=== PATIENT | female | born 1970 | race Hispanic/Latino ===

== ENCOUNTER 2020-09-14 08:12 | Day surgery (SDC) | payer BC ==
[~2020-09-14] VITALS: Ht 152.4 cm; Wt 52.0 kg
[~2020-09-14 08:12] MED LIST: COZAAR50 MG PO; KRILL OIL 1,001 EAC1 PO; MAGNESIUM250 M1 PO; MOTRIN IB200 MG PO; PERCOCET 7.5-31 EACH PO; TYLENOL325 MG PO; VITAMIN C1000 MG PO
[2020-09-14] MEDS ORDERED: NORVASC5 MG PO (08:41)
--- NOTE | 2020-09-14 10:29 | NUR ---
09/14/20 1029 Daxa Partida 1027 PATIENT RESTING QUIETLY WITH EYES CLOSED. RESP EVEN AND UNLABORED, NC OFF, ROOM AIR SATS 100%. PATIENT PASSING GAS.
--- NOTE | 2020-09-15 14:34 | OR ---
[facility] [address] [place], [place] [address] Signed DATE OF OPERATION: 09/14/2020 SURGEON: Zac Allen MD PREOPERATIVE DIAGNOSES: 1. Longstanding gastroesophageal reflux, possible Morales's esophagus from past. 2. Diarrhea alternating with constipation. POSTOPERATIVE DIAGNOSES: 1. Hiatal hernia with mild distal esophagitis. 2. Normal-appearing colon. PROCEDURES: 1. Esophagogastroduodenoscopy with biopsy. 2. Total colonoscopy to cecum. ANESTHESIA: Intravenous sedation, fentanyl 150 mcg, Versed 8 mg total. 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 She is to Dimitry Riley, nuclear medicine tech. She has had longstanding reflux problems and is referred by Dr. Baugh for consideration of upper endoscopy on that basis. She has taken PPI medication in the past and she has a history of H pylori, which was treated about 10 years ago. She does not have dysphagia, but does have pain when she eats and sometimes fecal urgency after eating. In addition, she has diarrhea alternating with constipation. She is admitted at this time to undergo upper endoscopy and colonoscopy. She understands the risks of bleeding, infection, and perforation. Special note, she has undergone cholecystectomy by me in 2019 for acalculous cholecystitis. FINDINGS: Upper endoscopy showed a hiatal hernia and mild distal esophagitis without Morales's epithelium. The stomach and duodenum were essentially normal. CLOtest was negative 30 minutes post procedure. On colonoscopy, the prep was excellent. Complete colonoscopy was undertaken to the cecum without question. There was no evidence of inflammation, diverticular formation, Electronically Signed By: ZAC ALLEN MD 09/15/20 1434 PATIENT NAME: ELADIA RILEY OPERATIVE REPORT DATE OF : 70 REPORT #: [id number] PHYSICIAN: ZAC ALLEN MD PCP: SANDEEP BAUGH MD REPORT IS CONFIDENTIAL AND NOT TO BE RELEASED WITHOUT AUTHORIZATION [facility] [address] [place], [place] [address] Signed polyps or cancer. DESCRIPTION OF PROCEDURE: The patient was brought to the endoscopy suite, given topical lidocaine anesthesia and placed in lateral decubitus position. Given intravenous sedation to the point of slurred speech and nystagmus with full cardiopulmonary monitoring. A bite block was placed. An Olympus video upper endoscope was passed in the hypopharynx. The vocal cords appeared normal. Scope was advanced into the esophagus throughout its length it appeared normal except the distal portion as there was mild inflammation, but no sign of Morales's epithelium. No stricturing. No varices. The scope was advanced into the stomach, which was insufflated with air. Rugal folds were normal. I saw no sign of ulceration or erosion. The pylorus was normal. Scope was passed through into the duodenum, which was normal. Biopsies were obtained there to assess for celiac disease. The scope was withdrawn. Biopsies were taken of the antrum for both MATEUS and pathologic testing. CLOtest was negative 40 minutes post procedure, it was noted. Retroflexed view showed a hiatal hernia. No sign of gastric varices. The scope was withdrawn. A distal esophageal biopsy was obtained showing mild chronic inflammation. The midesophagus was also biopsied that was appeared normal. Scope was removed and plans were made for colonoscopy. Additional sedation was given. Digital rectal examination was performed. An Olympus video colonoscope passed in the rectum and manipulated throughout the colon ultimately intubating the cecum. The ileocecal valve and appendiceal orifice appeared normal. Scope was withdrawn from that point and careful inspection throughout showed no sign of abnormalities specifically no polyps, diverticular formation, colitis, or cancer. Retroflex view was normal as well. The scope was removed and the patient was taken to the recovery room in good condition. CONCLUDING DIAGNOSIS: 1. Probable gastroesophageal reflux with hiatal hernia. Consideration will be made for PPI medication. She would be a surgical candidate for anti-reflux operation as well. 2. Colon normal. Most likely has irritable bowel syndrome. We will initiate a low FODMAP diet and assess her response. We will see her back in the office in 4 to 6 weeks. MD NURY Chavez/SERENITYL /[id number] Electronically Signed By: ZAC ALLEN MD 09/15/20 1434 PATIENT NAME: ELADIA RILEY OPERATIVE REPORT DATE OF : 70 REPORT #: [id number] PHYSICIAN: ZAC ALLEN MD PCP: SANDEEP BAUGH MD REPORT IS CONFIDENTIAL AND NOT TO BE RELEASED WITHOUT AUTHORIZATION [address] [address] Signed cc: Sandeep Baugh MD Copies: ~ Electronically Signed By: ZAC ALLEN MD 09/15/20 1434 PATIENT NAME: ELADIA RILEY OPERATIVE REPORT DATE OF : 70 REPORT #: [id number] PHYSICIAN: ZAC ALLEN MD PCP: SANDEEP BAUGH MD REPORT IS CONFIDENTIAL AND NOT TO BE RELEASED WITHOUT AUTHORIZATION
--- NOTE | 2020-09-19 09:43 | PATH ---
[facility] [address] [place], [place] [address] Signed SPECIMEN(S): A DUODENUM SPECIMEN(S): B ANTRUM/PYLORUS SPECIMEN(S): C DISTAL ESOPHAGUS SPECIMEN(S): D MID ESOPHAGUS SPECIMEN SOURCE: A. DUODENUM B. ANTRUM/PYLORUS C. DISTAL ESOPHAGUS D. MID ESOPHAGUS CLINICAL HISTORY: GERD with esophagitis, bloating. Postop: Distal chronic esophagitis, hiatal hernia. MICROSCOPIC DESCRIPTION: Histologic sections of all submitted blocks are examined by light microscopy. These findings, together with the gross examination, support the pathologic diagnosis. FINAL PATHOLOGIC DIAGNOSIS: A. Duodenum, biopsy: - No significant histopathology. B. Stomach, antrum/pylorus, biopsy: - No significant histopathologic alterations. C. Distal esophagus, biopsy: - Chronic esophagitis. - No evidence of Morales's esophagus. D. Mid esophagus, biopsy: - Portions of unremarkable squamous mucosa. COMMENT: Regarding specimen A, the sections from the duodenal biopsy show portions of duodenal mucosa with long finger-like villi. There is no villous atrophy, crypt hyperplasia or intraepithelial lymphocytosis, making a diagnosis of celiac disease unlikely. There is no evidence of peptic duodenitis, microorganisms, abnormal infiltrates or neoplasia. Regarding specimen B, the sections through the gastric biopsies show fragments of histologically unremarkable antral mucosa. There is no evidence of acute or chronic inflammation. There is no evidence of H. pylori, intestinal metaplasia, abnormal infiltrates or PATIENT NAME: BILLY RILEYBLOSSOM BARRAGAN PATHOLOGY DATE OF : 70 REPORT #: [id number] PHYSICIAN: JOELLE PATHOLOGY PCP: JAYNE BAUGH MD REPORT IS CONFIDENTIAL AND NOT TO BE RELEASED WITHOUT AUTHORIZATION [facility] [address] [place], [place] [address] Signed neoplasia. Regarding specimen C, the biopsy contains reactive appearing squamous mucosa. It appears acanthotic with basal cell hyperplasia. The absence of glandular mucosa is noted. There is chronic inflammation associated with the reactive changes. The changes are nonspecific and can be seen in a variety of settings including infections, gastroesophageal reflux disease or other forms of esophagitis. Regarding specimen D, the biopsy shows normal appearing squamous epithelium. There is no evidence of acute or chronic inflammation. TWK:emh:C2NR GROSS DESCRIPTION: Four specimens are received in four containers, labeled "Tova Riley." A. The specimen, labeled "Tova Riley, #1," and designated on the requisition "duodenum," is received in formalin and consists of two crouch soft tissue fragment(s) that measure 0.3 and 0.4 cm in greatest dimension. The specimen is entirely submitted in cassette (A1). B. The specimen, labeled "Tova Riley, #2," and designated on the requisition "antrum/pylorus," is received in formalin and consists of three crouch soft tissue fragment(s) that measure 0.2-0.6 cm in greatest dimension. The specimen is entirely submitted in cassette (B1). C. The specimen, labeled "Tova Riley, #3," and designated on the requisition "distal esophagus," is received in formalin and consists of one white-crouch soft tissue fragment that measure 0.2-0.5 cm in greatest dimension. The specimen is entirely submitted in cassette (C1). D. The specimen, labeled "Tova Riley, #4," and designated on the requisition "mid esophagus," is received in formalin and consists of two white-crouch soft tissue fragment(s) that measure 0.5 and 0.6 cm in greatest dimension. The specimen is entirely submitted in cassette (D1). FB (under the direct supervision of a pathologist) The Gross Description was prepared using a voice recognition system. The report was reviewed for accuracy; however, sound-alike word errors, addition and/or deletions may occur. If there is any question about this report, please contact Client Services. PERFORMING LABORATORY: The technical component was performed by [facility], [address] [place] [id number] (Manager Solar: Sammi Aaron MD; CLIA# [id number]). Professional interpretation was performed by [facility] PATIENT NAME: TOVA RILEY PATHOLOGY DATE OF : 70 REPORT #: [id number] PHYSICIAN: JOELLE MORGAN PCP: JAYNE BAUGH MD REPORT IS CONFIDENTIAL AND NOT TO BE RELEASED WITHOUT AUTHORIZATION [address] [address] Signed [facility] [place] [address] (Manager [employer]: Sammi Aaron MD; CLIA# [id number]). Diagnostician: Lester Talley MD Pathologist Electronically Signed 09/19/2020 Copies: ~ PATIENT NAME: BILLY RILEYBLOSSOM BARRAGAN PATHOLOGY DATE OF : 70 REPORT #: [id number] PHYSICIAN: JOELLE PATHOLOGY PCP: JAYNE BAUGH MD REPORT IS CONFIDENTIAL AND NOT TO BE RELEASED WITHOUT AUTHORIZATION
== END 2020-09-14 11:10 | disposition home or self-care (01) ==
LOC: OPS 08:12 → DS 08:12 → OPS 10:15
PROVIDERS: ATTEND Surgery
PROC: 0DB28ZX Excision of Middle Esophagus, Via Natural or Artificial Opening Endoscopic, Diagnostic (ICD-10-PCS; 2020-09-14)
PROC: 0DB38ZX Excision of Lower Esophagus, Via Natural or Artificial Opening Endoscopic, Diagnostic (ICD-10-PCS; 2020-09-14)
PROC: 0DJD8ZZ Inspection of Lower Intestinal Tract, Via Natural or Artificial Opening Endoscopic (ICD-10-PCS; 2020-09-14)
PROC: 0DB98ZX Excision of Duodenum, Via Natural or Artificial Opening Endoscopic, Diagnostic (ICD-10-PCS; principal; 2020-09-14 10:15)
PROC: 0DB78ZX Excision of Stomach, Pylorus, Via Natural or Artificial Opening Endoscopic, Diagnostic (ICD-10-PCS; 2020-09-14 10:15)
DX: K21.00 Gastro-esophageal reflux disease with esophagitis, without bleeding (principal); K44.9 Diaphragmatic hernia without obstruction or gangrene; I10 Essential (primary) hypertension; Z91.041 Radiographic dye allergy status; Z79.899 Other long term (current) drug therapy; Z79.1 Long term (current) use of non-steroidal anti-inflammatories (NSAID); Z90.49 Acquired absence of other specified parts of digestive tract; Z85.830 Personal history of malignant neoplasm of bone
CPT/HCPCS: 99153; G0500; J2250; J3010; J7121

== ENCOUNTER 2022-07-15 09:51 | Day surgery (SDC) | payer BC ==
[~2022-07-15] VITALS: Ht 157.5 cm; Wt 54.4 kg
[~2022-07-15 09:51] MED LIST changes: +NORVASC5 MG PO
[2022-07-15] MEDS ORDERED: VITAMIN D3125 MC1 PO (10:10)
--- NOTE | 2022-07-15 12:08 | NUR ---
07/15/22 1208 Sue [address] 1158 PT ARRVIED TO PACU ON 2L VIA MILE, VSS. PT WAKES AND DENIES CONCERNS.
--- NOTE | 2022-07-15 19:03 | OR ---
[facility] [address] [place], [place] [address] Signed DATE OF OPERATION: 07/15/2022 SURGEON: Zac Allen MD PREOPERATIVE DIAGNOSIS: Episode of severe left lower abdominal pain. 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 PROCEDURE: Total colonoscopy to cecum with cold morcellation polypectomy x1 and biopsy of cecum and rectum. ANESTHESIA: Intravenous sedation of fentanyl 150 mcg and Versed 4 mg. INDICATION: 52-year-old [place] woman is a patient of Dr. Baugh and known to me from the past. She has a history and recent times of rather severe left lower abdominal and groin pain. She has no clinical findings of hernia. She is considered likely to have diverticulitis. She underwent colonoscopy two years ago, which showed no evidence of colitis or polyps and no diverticula. Consideration was made she may have irritable bowel syndrome. Her last colonoscopy in September 2020 showed normal colon. Biopsies were not obtained at that time. She does have some diarrhea. The possibility of microscopic colitis or other similar problem is also considered. She is admitted to undergo colonoscopy at this time, understands the risks of bleeding, infection, and perforation. FINDINGS: The prep was excellent. Complete colonoscopy was undertaken with the cecum without question. She had some melanosis of the cecum. There was no evidence of actual colitis. Biopsies taken of the cecum, the rectum and a diminutive polyp excised from the rectosigmoid. Notably, there were no diverticula. PROCEDURE IN DETAIL: The patient was brought to the endoscopy suite and placed in lateral decubitus position given intravenous sedation to point of slurred speech and nystagmus. Digital rectal examination was normal. Electronically Signed By: ZAC ALLEN MD 07/15/22 190 PATIENT NAME: ELADIA RILEY OPERATIVE REPORT DATE OF : 70 REPORT #: [id number] PHYSICIAN: ZAC ALLEN MD PCP: JAYNE BAUGH MD REPORT IS CONFIDENTIAL AND NOT TO BE RELEASED WITHOUT AUTHORIZATION [facility] [address] [place], [place] [address] Signed An Olympus video colonoscope was passed in the rectum and manipulated throughout the colon ultimately intubating the cecum itself. The ileocecal valve and appendiceal orifice were normal. There did appear to be melanosis coli, though that is not certain. Biopsies were obtained. The scope was then withdrawn and examination throughout showed no sign of abnormality until the rectosigmoid where a diminutive polyp was noted, this was excised with cold morcellation technique. Rectum was additionally biopsied to assess for occult colitis. The scope was removed. The patient was taken to the recovery room in good condition. CONCLUDING DIAGNOSIS: No specific lesion to account for recurrent symptoms of left lower abdominal pain and groin pain. PLAN: We will review her pathology report. She will return to the ongoing care of Dr. Baugh. If symptoms should recur, I would like to see her promptly. She may have irritable bowel syndrome for which a low FODMAP diet may be beneficial. MD NURY Chavez/SERENITYL /[id number] cc: Dr. Baugh Copies: ~ Electronically Signed By: ZAC ALLEN MD 07/15/22 1903 PATIENT NAME: ELADIA RILEY OPERATIVE REPORT DATE OF : 70 REPORT #: [id number] PHYSICIAN: ZAC ALLEN MD PCP: JAYNE BAUGH MD REPORT IS CONFIDENTIAL AND NOT TO BE RELEASED WITHOUT AUTHORIZATION
== END 2022-07-15 18:00 | disposition home or self-care (01) ==
LOC: OPS 09:51 → DS 09:54 → OPS 11:00
PROVIDERS: ATTEND Surgery
PROC: 0DBN8ZX Excision of Sigmoid Colon, Via Natural or Artificial Opening Endoscopic, Diagnostic (ICD-10-PCS; 2022-07-15)
PROC: 0DBP8ZX Excision of Rectum, Via Natural or Artificial Opening Endoscopic, Diagnostic (ICD-10-PCS; 2022-07-15)
PROC: 0DBH8ZX Excision of Cecum, Via Natural or Artificial Opening Endoscopic, Diagnostic (ICD-10-PCS; principal; 2022-07-15 11:00)
DX: R10.32 Left lower quadrant pain (principal); K81.1 Chronic cholecystitis; I10 Essential (primary) hypertension; K21.9 Gastro-esophageal reflux disease without esophagitis; K63.5 Polyp of colon; K63.89 Other specified diseases of intestine
CPT/HCPCS: 99153; G0500; J2250; J3010; J7121

== ENCOUNTER 2022-07-23 08:26 | Emergency (ER) | payer BC ==
[~2022-07-23] VITALS: Ht 152.4 cm; Wt 53.5 kg
[~2022-07-23 08:26] MED LIST changes: +VITAMIN D3125 MC1 PO
--- OUTSIDE RECORDS SUMMARY | 2022-07-23 08:28 | XMS ---
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 Jonathan has no Care Guidelines for this patient. Ta VISIT COUNT (12 MO.) 1 SANCHEZ Corley TOTAL 1 NOTE: Visits indicate total known visits. ED/UCC VISIT TRACKING (12 MO.) 07/23/2022 08:27 SANCHEZ Arredondo [place] TYPE: Emergency COMPLAINT: - R SIDE UPPER ABD/MIDDLE BACK PAIN INPATIENT VISIT TRACKING (12 MO.) No inpatient visits to display in this time frame [email or web address]
[2022-07-23] MEDS ORDERED: ONDANSETRON ODT4 MG PO (10:11)
== END 2022-07-23 10:39 | disposition home or self-care (01) ==
LOC: ED 08:26
DX: R10.11 Right upper quadrant pain (principal); K59.00 Constipation, unspecified; I10 Essential (primary) hypertension; Z87.891 Personal history of nicotine dependence; Z88.5 Allergy status to narcotic agent; Z79.899 Other long term (current) drug therapy
CPT/HCPCS: 36415; 74176; 80053; 81001; 83690; 83735; 85025; J1885; J2405

== ENCOUNTER 2024-03-24 23:21 | Emergency (ER) | payer BC ==
[~2024-03-24] VITALS: Ht 152.4 cm; Wt 56.8 kg
[~2024-03-24 23:21] MED LIST changes: +ONDANSETRON ODT4 MG PO
[2024-03-24 23:42] LABS: HEMOGLOBIN 12.9 g/dL (12.0-18.0)
[2024-03-24] MEDS ORDERED: LACTATED RINGER'S 1,000 ML IV ONE (23:45)
[2024-03-24] MEDS ORDERED: KETOROLAC TROMETHAMINE 30 MG/ML VIAL IV ONE (23:45)
[2024-03-24] MEDS ORDERED: fentaNYL citrate 100 MCG/2 ML VIAL IV PRN (23:45)
[2024-03-24 23:47] LABS: HEMATOCRIT 38.6 % (35.0-50.0); MCH 30.6 (27-36); MCHC 33.5 g/dl (30-36); MCV 91.5 fl (81-99); PLATELET COUNT 232 K/uL (140-440); RBC 4.22 M/ul (4.3-5.7); RDW 13.6 (10.5-15.0)
[2024-03-24 23:55] LABS: ALBUMIN 3.8 g/dL (3.4-5.0); ANION GAP 15.4 (7-21); BILIRUBIN, TOTAL 0.3 ng/dL (0.2-1.0); BUN/CREATININE RATIO 16.17 (6.0-28.6); CALCIUM 8.8 mg/dL (8.5-10.1); CREATININE, SERUM 0.68 mg/dL (0.55-1.02); POTASSIUM 3.4 mmol/L (3.5-5.1); PROTEIN, TOTAL 7.6 g/dL (6.4-8.2)
[2024-03-24 23:59] LABS: BANDS, MANUAL DIFF 2; EOSINOPHILS, MANUAL DIFF 3; LYMPHOCYTES, MANUAL DIFF 54; MONOCYTES, MANUAL DIFF 4; NEUTROPHILS, MANUAL DIFF 37
[2024-03-25 00:06] LABS: BILIRUBIN, URINE NEGATIVE (negative); BLOOD/HGB, URINE TRACE-I (Negative); KETONE, URINE NEGATIVE (Negative); LEUK ESTERASE, URINE NEGATIVE (negative); NITRITE, URINE NEGATIVE (negative); PH, URINE 7.5 (5-7)
[2024-03-25 00:12] LABS: EPITHELIAL CELLS, URINE SQUAMOUS 1+ /lpf (0-1+)
[2024-03-25 00:13] LABS: BACTERIA, URINE RARE /hpf (negative); CASTS, URINE NONE SEEN \\lpf; CRYSTALS, URINE NONE SEEN (0-1+); REFLEX CULTURE, URINE No (No)
[2024-03-25] MEDS ORDERED: MAGNESIUM CITRATE 300 ML BTL PO ONE (01:30)
[2024-03-25 01:42] VITALS: BP 127/68
== END 2024-03-25 01:44 | disposition home or self-care (01) ==
LOC: ED 23:21
PROVIDERS: Internal Medicine
DX: R10.32 Left lower quadrant pain (principal); K59.00 Constipation, unspecified; N20.0 Calculus of kidney; I10 Essential (primary) hypertension; Z87.891 Personal history of nicotine dependence; Z79.899 Other long term (current) drug therapy
CPT/HCPCS: 36415; 74176; 80053; 81001; 83690; 84703; 85025; 96374; 96375; 99284-25; J1885; J3010; J7121